=== PATIENT | female | born 1965 | race Caucasian/White ===

== ENCOUNTER → 2016-06-28 10:52 | Outpatient (CLI) | payer BC ==
[2016-02-29 11:44] VITALS: BMI 44.0
[~2016-06-28 10:52] MED LIST: ACETAMINOPHEN500 M1 PO; ADVIL200 MG PO; BLACK COHOSH160 MG PO; DESERYL100 MG PO; DILAUDID2 MG PO; ELIQUIS2.5 MG PO; HYDROCODONE-APA1 TAB PO; MELATONIN10 M1 PO; MOBIC7.5 MG PO; ULTRAM50 MG PO
[2016-06-28 11:21] LABS: HEMATOCRIT 39.7 % (36.0-48.0); HEMOGLOBIN 13.1 g/dL (12-16); MCH 30.5 pg (26.0-34.0); MCV 92.5 fL (80.0-100.0); RBC 4.29 10x6/uL (4.00-5.40); WBC 7.3 10x3/uL (4.8-10.8)
[2016-06-28 11:34] LABS: ALBUMIN 3.5 g/dL (3.4-5.0); ALKALINE PHOSPHATASE 89 U/L (46-116); ALT (SGPT) 27 U/L (10-68); CALC OSMOLALITY 275 mosm/kg (275-300); CALCIUM 8.8 mg/dL (8.5-10.1); CARBON DIOXIDE 27.7 mmol/L (21.0-32.0); CHLORIDE - SERUM 103 mmol/L (98-107); CREATININE - SERUM 0.7 mg/dL (0.6-1.3); GLUCOSE 112 mg/dL (74-106); PROTEIN - SERUM 7.2 g/dL (6.4-8.2); SODIUM 137 mmol/L (136-145); UREA NITROGEN 15 mg/dL (7-18); eGFR NON AFRICAN AMERICAN > 90 mL/min (90-120)
== END | disposition home or self-care (01) ==
LOC: D.LAB 10:52
PROVIDERS: Orthopaedic Surgery
DX: R60.0 Localized edema (principal)

== ENCOUNTER → 2016-07-27 10:20 | Outpatient (CLI) | payer BC ==
[2016-02-29 11:44] VITALS: BMI 44.0
== END | disposition home or self-care (01) ==
LOC: D.MRI 07-25 15:00
DX: M25.561 Pain in right knee (principal)

== ENCOUNTER → 2016-08-03 19:01 | Outpatient (CLI) | payer BC ==
[2016-02-29 11:44] VITALS: BMI 44.0
== END | disposition home or self-care (01) ==
LOC: D.LABREF 19:01
DX: M17.11 Unilateral primary osteoarthritis, right knee (principal); Z11.8 Encounter for screening for other infectious and parasitic diseases

== ENCOUNTER 2016-09-01 09:30 | Inpatient (IN) | payer BC ==
[~2016-09-01] VITALS: Ht 160 cm; Wt 114.5 kg
[~2016-09-01 09:30] MED LIST changes: -ACETAMINOPHEN500 M1 PO; -ELIQUIS2.5 MG PO; -HYDROCODONE-APA1 TAB PO; -MELATONIN10 M1 PO
[2016-09-01 09:32] LABS: BASOPHILS 0.2 % (0.0-2.0); EOSINOPHILS 0.9 % (0-7); HEMATOCRIT 41.9 % (36.0-48.0); HEMOGLOBIN 13.8 g/dL (12-16); IMMATURE GRANULOCYTES 0.2 % (0-5); MCH 31.2 pg (26.0-34.0); MCHC 32.9 g/dL (31.0-37.0); MCV 94.6 fL (80.0-100.0); MONOCYTES 7.6 % (2-11); NEUTROPHILS 49.1 % (40-80); PLATELET COUNT 248 10x3/uL (130-400); RBC 4.43 10x6/uL (4.00-5.40); RDW 12.8 % (11.5-14.5); WBC 6.5 10x3/uL (4.8-10.8)
[2016-09-01 09:39] LABS: APTT 29.6 SECONDS (22.8-39.4); INR 0.94 (0.85-1.17); PROTIME 12.5 SECONDS (11.6-15.0)
[2016-09-01 09:41] LABS: CALC OSMOLALITY 280 mosm/kg (275-300); CALCIUM 8.6 mg/dL (8.5-10.1); CARBON DIOXIDE 26.7 mmol/L (21.0-32.0); CHLORIDE - SERUM 104 mmol/L (98-107); CREATININE - SERUM 0.7 mg/dL (0.6-1.3); GLUCOSE 127 mg/dL (74-106); SODIUM 140 mmol/L (136-145); UREA NITROGEN 12 mg/dL (7-18); eGFR NON AFRICAN AMERICAN > 90 mL/min (90-120)
[2016-09-01] MEDS ORDERED: MELATONIN10 M1 PO (09:48)
[2016-09-01] MEDS ORDERED: ACETAMINOPHEN500 M1 PO (09:49)
[2016-09-01 09:54] LABS: APPEARANCE SLT CLOUDY (CLEAR); BILIRUBIN NEGATIVE (NEGATIVE); COLOR YELLOW (YELLOW); GLUCOSE NEGATIVE (NEGATIVE); KETONE NEGATIVE (NEGATIVE); LEUKOCYTE ESTERASE TRACE (NEGATIVE); NITRITE NEGATIVE (NEGATIVE); PROTEIN NEGATIVE (NEGATIVE); SPECIFIC GRAVITY 1.025 (1.005-1.020); UROBILINOGEN NORMAL (NORMAL)
[2016-09-01 09:55] LABS: BACTERIA MODERATE /hpf (NONE SEEN); MUCUS >1+ /lpf (NONE SEEN); WHITE CELLS - URINE 0-5 /hpf (0-5)
[2016-09-05] VITALS (9 sets, daily range): BP systolic 101–161; BP diastolic 59–89; Ht 160 cm; Wt 114.5 kg
--- NOTE | 2016-09-05 09:34 | NUR ---
PATIENT HAD DROP IN O2 SAT AFTER PAIN MEDICATION GIVEN. NASAL AIR WAY INSERTED WITH ANESTHIA AT BEDSIDE 02 RECOVED TO 97%
--- NOTE | 2016-09-05 09:53 | NUR ---
ANESTHIA HERE FOR FEMORAL BLOCK SEE GREEN SHEET FOR DETAILS
--- NOTE | 2016-09-05 10:10 | NUR ---
PATIENT TO ROOM AT THIS TIME. COMPLAINTS OF SOME PAIN TO RIGHT KNEE. IV INTACT. VS STABLE. FAMILY AT BEDSIDE. CALL LIGHT WITHIN REACH.
--- NOTE | 2016-09-05 10:30 | NUR ---
PATIENT BAKERY DELIVERER DILAUDID SET UP AT THIS TIME FOR PAIN. NEUROVASCULAR CHECKS WNL. NO OTHER COMPLAINTS AT THIS TIME. TOLERATING CLEAR LIQUIDS. WILL ADVANCE TO REGULAR DIET AT LUNCH. PATIENT VS STABLE. FAMILY AT BEDSIDE. CALL LIGHT WITHIN REACH.
--- NOTE | 2016-09-05 12:45 | NUR ---
PATIENT KNEE BLEEDING THROUGH BANDAGE AT THIS TIME. REINFORCED WITH 4X4S AND ABD PADS. IV INTACT. VS STABLE. PATIENT TOLERATED REGULAR DIET. NEUROVASCULAR CHECKS WNL. CALL LIGHT WITHIN REACH. LEFT LEG SCD ON AND WORKING.
--- NOTE | 2016-09-05 15:26 | NUR ---
PATIENT IN BED WITH EYES CLOSED RESTING QUIETLY AT THIS TIME. IV INTACT. CALL LIGHT WITHIN REACH.
--- NOTE | 2016-09-05 17:00 | OP ---
PATIENT NAME: HARIKA CANTU MEDICAL RECORD: [id number] :69 LOCATION:D.MS [id number] ADMISSION DATE:09/05/16 SURGEON: ROSSY MA MD DATE OF OPERATION: 09/05/2016 Orthopedic Surgery Operative Note PREOPERATIVE DIAGNOSIS: Degenerative arthritis of the right knee. POSTOPERATIVE DIAGNOSIS: Degenerative arthritis of the right knee. PROCEDURE: Right total knee arthroplasty. SURGEON: Rossy Ma MD. ANESTHESIA: General. INTRAOPERATIVE COMPLICATIONS: None. SUMMARY OF PATHOLOGIC FINDINGS: The patient had extensive tricompartmental osteoarthritis. IMPLANTS USED: Jose triathlon press fit total knee arthroplasty, size 3 distal femur, 9 polyethylene insert, 3 tibial baseplate, size ____ patellar component. OPERATIVE SUMMARY IN DETAIL: After obtaining the appropriate preoperative orthopedic surgery consent as well as anesthetic consultation, evaluation and clearance, the patient was brought to the operating room and placed on the operating table in supine position. After adequate general laryngeal mask airway was administered, tourniquet was placed about the proximal aspect of the right lower extremity. Right lower extremity was then prepped and draped in routine sterile fashion. Leg was elevated, exsanguinated and tourniquet was inflated to 350 mmHg. Routine midline incision was taken down for paramedian arthrotomy. The patella was subluxed laterally and the distal femur was exposed. Soft tissue excision was done in the usual fashion. Distal intramedullary guide hole was created for distal intramedullary cutting and distal intramedullary cut and was then followed by complete exposure of the proximal tibia. Intramedullary guide hole was completed for the proximal tibia. Proximal tibia was cut using intramedullary guidance. Having completed this, appropriate measurements were made and Chamfer cuts were made on the distal femur. At this point, trial components were put into place. Final distal femoral and proximal tibial preparations were made followed by excision of the arthritic articular surface of the patella. Final patellar components were made and final patellar preparations were made. The cavity was irrigated with pulsatile lavage fashion. Press fit components were put into place. The knee was taken through a range of motion and found to be stable in all planes. Paramedian arthrotomy was closed with #2 Ethibond followed by #1 Vicryl, 2-0 Vicryl and skin adarsh. Sterile dressings were applied. The patient was awakened, taken to recovery in stable condition. All final needle and sponge counts were correct. TRANSINT:[id number] Voice Confirmation ID: [id number] DOCUMENT ID: [id number] OPERATIVE REPORT [id number] HARIKA CANTU MD, ROSSY URRUTIA at 1700 CC: [id number] DICTATION DATE: 09/05/16914 RN GYN: 09/05/16 1316 ADM IN [facility] [address] [id number]
--- NOTE | 2016-09-05 18:50 | NUR ---
PATIENT IN BED WITH IV INTACT. NO COMPLAINTS AT THIS TIME. FAMILY AT BEDSIDE. CALL LIGHT WITHIN REACH.
--- NOTE | 2016-09-05 19:25 | NUR ---
RECIEVED SHIFT REPORT. PT IS LYING IN BED. ALERT AND ORIENTED AND ABLE TO VERBALIZE NEEDS. IV IS PATENT AND FLUIDS ARE RUNNING PER ORDER. SCD'S ON. CPM ON. DRESSING TO RIGHT KNEE C/D/I. O2 @ 2 PER NASAL CANNULA. PT IS ON BEDREST POST OP BUT IS ABLE TO TURN SELF IN BED FOR COMFORT AND SKIN CARE. PT STATES PAIN IS 5/10 WITH QUALIFICATION ENGINEER PUMP. NO NEEDS ARE VERBALIZED AT THIS TIME. WILL CONTINUE TO MONITOR. VISITOR AT BEDSIDE. SIDE RAILS ARE UP X 2. BED IS IN LOWEST POSITION. BED ALARM IS ON FOR SAFETY. CALL LIGHT IS WITHIN REACH.
--- NOTE | 2016-09-05 21:17 | NUR ---
SHIFT ASSESSMENT COMPLETED. NIGHT MEDS GIVEN WITH NO PROBLEMS. NO NEEDS ARE VOICED. WILL MONITOR. VISITOR AT BEDSIDE. SIDE RAILS X 2. BED LOW. BED ALARM ON. CALL LIGHT IN REACH.
[2016-09-06] VITALS: BP 131/73
[2016-09-06 06:03] LABS: HEMATOCRIT 35.6 % (36.0-48.0); HEMOGLOBIN 11.2 g/dL (12-16); MCH 30.2 pg (26.0-34.0); MCHC 31.5 g/dL (31.0-37.0); MEAN PLATELET VOLUME 10.5 fL (7.4-10.4); RBC 3.71 10x6/uL (4.00-5.40); RDW 12.7 % (11.5-14.5); WBC 12.7 10x3/uL (4.8-10.8)
[2016-09-06 08:19] VITALS: BP 136/84
--- NOTE | 2016-09-06 08:50 | NUR ---
PATIENT IV OUT OF VEIN AND HURTING. REMOVED WITH CATH TIP INTACT. PAIN PILL GIVEN. CALL LIGHT WITHIN REACH.
[2016-09-06 12:16] VITALS: BP 114/60
--- NOTE | 2016-09-06 13:00 | NUR ---
PATIENT RECIEVED PAIN MED AND BENADRYL THIS TIME. SITTING UP IN CHAIR WITH CALL LIGHT WITHIN REACH.
--- NOTE | 2016-09-06 13:51 | NUR ---
* Is the patient Alert and Oriented? Yes 0 * How many steps to enter\exit or inside your home? 4 0 * PCP Dr. Bland 0 * Pharmacy [facility] in [place] 0 * Preadmission Environment Home with Family 0 * ADLs Independent 0 * Equipment Rolling Walker 0 * List name and contact numbers for known caregivers / representatives who currently or will assist patient after discharge: Spouse - Suraj [phone] * Additional services required to return to the preadmission environment? Yes 0 * Can the patient safely return to the preadmission environment? Yes 0 * Has this patient been hospitalized within the prior 30 days at any hospital? No 09/06/2016 13:52 DCP: Discharge Planning Patient Name: HARIKA CANTU Admission Status: Elective Accout number: [id number] Admission Date: 09-05-2016 : 1965 Admission Diagnosis: Attending: NATASHA Current LOS: 1 Anticipated DC Date: 09-07-2016 Planned Disposition: Outpatient PT\OT Primary Insurance: [employer] Discharge Planning Comments: CM met with patient to assess dc plans/needs. Patient states she lives at home with her , Suraj. 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 At dc, she will return home with her . She has a rolling walker. A CPM has been ordered by MD office prior to admission through [facility] & will be delivered to the hospital before discharge. Patient has chosen to come to [facility] for outpatient physical therapy - Appt. scheduled 09/09 @ 1045 @ [facility]. Anticipate DC tomorrow afternoon. CM will follow. Call Center Support Consultant: Shantel Dunne
--- NOTE | 2016-09-06 16:00 | NUR ---
PATIENT RECIEVED TYLENOL AT THIS TIME FOR PAIN. STATED SHE IS FEELING FLUSHED. GAVE COOL WASH CLOTH TO PATIENT. TEMP AND BP WNL. NO OTHER COMPLAINTS. CALL LIGHT WITHIN REACH.
[2016-09-06 16:44] VITALS: BP 116/61
--- NOTE | 2016-09-06 17:20 | NUR ---
PATIENT RECIEVED NORCO FOR PAIN THIS TIME. STATED SHE THINKS THE PECOCET IS WHAT IS MAKING HER FEEL FLUSHED. FAMILY AT BEDSIDE. CALL LIGHT WITHIN REACH.
--- NOTE | 2016-09-06 18:45 | NUR ---
PATIENT IN BED WITH CPM ON. STATES FEELING A LITTLE BETTER. FAMILY AT BEDSIDE. CALL LIGHT WITHIN REACH. IMAN IN TO SEE PATIENT.
--- NOTE | 2016-09-06 19:25 | NUR ---
RECIEVED SHIFT REPORT. PT IS LYING IN BED. ALERT AND ORIENTED AND ABLE TO VERBALIZE NEEDS. PT HAS NO IV ACCESS AT THIS TIME. PT IS AMBULATORY WITH ASSISTANCE. SCD'S ON. CPM ON AT THIS TIMW. PT STATES PAIN IS 6/10. NO NEEDS ARE VERBALIZED AT THIS TIME. WILL CONTINUE TO MONITOR. SIDE RAILS ARE UP X 2. BED IS IN LOWEST POSITION. BED ALARM IS ON FOR SAFETY. CALL LIGHT IS WITHIN REACH.
[2016-09-06 20:00] VITALS: BP 131/72
--- NOTE | 2016-09-06 21:35 | NUR ---
SHIFT ASSESSMENT COMPLETED. NIGHT MEDS GIVEN WITH NO PROBLEMS. PT C/O PAIN 11/28. ADMINISTERED PRESCRIBED PRN NORCO PER ORDER. DENIES FURTHER NEEDS. WILL MONITOR. SIDE RAILS X 2. BED LOW. BED ALARM ON. CALL LIGHT IN REACH.
[2016-09-07] VITALS: BP 117/78
[2016-09-07 04:00] VITALS: BP 99/71
[2016-09-07 05:36] LABS: HEMATOCRIT 32.6 % (36.0-48.0); HEMOGLOBIN 10.1 g/dL (12-16); MCH 30.1 pg (26.0-34.0); MEAN PLATELET VOLUME 10.3 fL (7.4-10.4); RBC 3.36 10x6/uL (4.00-5.40); RDW 13.1 % (11.5-14.5); WBC 9.7 10x3/uL (4.8-10.8)
--- NOTE | 2016-09-07 07:00 | NUR ---
REPORT RECIEVED ASSUMED CARE. PATIENT IN BED WITH NO COMPLAINTS. CALL LIGHT WITHIN REACH.
[2016-09-07 08:15] VITALS: BP 138/65
[2016-09-07] MEDS ORDERED: HYDROCODONE-APA1 TAB PO (08:15)
[2016-09-07] MEDS ORDERED: ELIQUIS2.5 MG PO (08:15)
--- NOTE | 2016-09-07 11:25 | NUR ---
09/07/2016 11:24 DCP: Discharge Planning Patient Name: HARIKA CANTU Encounter No: [id number] : 1965 Primary Insurance: [employer] Anticipated DC Date: 09-07-2016 Planned Disposition: Outpatient PT\OT External Planned Provider: [facility] OP PT DCP follow-up note: DC order rec'd. Patient and family in agreement with discharge plan. No changes to plan. CPM will be delivered prior to dc. Case management will follow and assist as needed. Shantel Dunne
--- NOTE | 2016-09-07 13:00 | NUR ---
PATIENT RECIEVED DC INSTRUCTIONS. VERBALIZED UNDERSTANDING. NO QUESTIONS AT THIS TIME. DRESSING TO RIGHT KNEE CHANGED BECAUSE SATURATED. INCISION CLEANED WITH SALINE AND STERILE GAUZE. ROSA INTACT. NO SIGNS OF INFECTION. NEW DRESSING APPLIED. CALL LIGHT WITHIN REACH. PRESCRIPTIONS AND COUPONS FOR ELIQUIS ALSO GIVEN TO PATIENT.
--- NOTE | 2016-09-07 15:18 | NUR ---
Patient requested IV moved from right antecubital. 22 gauge inserted in left hand x 1 attempt. Malini Abebe RN
== END 2016-09-07 15:41 | disposition home or self-care (01) | DRG 470 ==
LOC: D.SDCHOLD 09:30 → D.MS 09-05 09:49
PROVIDERS: ADMIT Orthopaedic Surgery
PROC: 0SRC0JA Replacement of Right Knee Joint with Synthetic Substitute, Uncemented, Open Approach (ICD-10-PCS; principal; 2016-09-05 07:30)
DX: M17.11 Unilateral primary osteoarthritis, right knee (principal); Z87.891 Personal history of nicotine dependence

== ENCOUNTER → 2016-09-12 14:05 | Outpatient (CLI) | payer BC ==
[2016-09-05 10:15] VITALS: BMI 44.7
[~2016-09-12 14:05] MED LIST changes: +ACETAMINOPHEN500 M1 PO; +ELIQUIS2.5 MG PO; +HYDROCODONE-APA1 TAB PO; +MELATONIN10 M1 PO
== END | disposition home or self-care (01) ==
LOC: D.US 14:05
DX: R60.0 Localized edema (principal); M79.661 Pain in right lower leg

== ENCOUNTER 2017-05-04 06:10 | Outpatient (CLI) | payer MEDICAID ==
[~2017-05-04] VITALS: Ht 160 cm; Wt 111.4 kg
[2017-05-04 07:00] LABS: BASOPHILS 0.1 % (0-2); EOSINOPHILS 2.5 % (0-7); HEMATOCRIT 42.3 % (36.0-48.0); HEMOGLOBIN 13.8 g/dL (12-16); IMMATURE GRANULOCYTES 0.1 % (0-5); LYMPHOCYTES 34.5 % (15-50); MCH 30.5 pg (26.0-34.0); MCHC 32.6 g/dL (31.0-37.0); MCV 93.4 fL (80.0-100.0); MEAN PLATELET VOLUME 10.2 fL (7.4-10.4); MONOCYTES 9.1 % (2-11); NEUTROPHILS 53.7 % (40-80); PLATELET COUNT 253 10x3/uL (130-400); RBC 4.53 10x6/uL (4.00-5.40); RDW 13.3 % (11.5-14.5); WBC 7.7 10x3/uL (4.8-10.8)
[2017-05-04] MEDS ORDERED: ALEVE220 MG PO (07:00)
[2017-05-04 07:03] VITALS: Ht 160 cm; Wt 111.4 kg
[2017-05-04 07:12] LABS: CALC OSMOLALITY 279 mosm/kg (275-300); CALCIUM 8.8 mg/dL (8.5-10.1); CARBON DIOXIDE 28.3 mmol/L (21.0-32.0); CHLORIDE - SERUM 105 mmol/L (98-107); CREATININE - SERUM 0.7 mg/dL (0.6-1.3); GLUCOSE 103 mg/dL (74-106); POTASSIUM - SERUM 4.1 mmol/L (3.5-5.1); SODIUM 139 mmol/L (136-145); UREA NITROGEN 18 mg/dL (7-18); eGFR NON AFRICAN AMERICAN > 90 mL/min (90-120)
[2017-05-04 07:19] LABS: HCG SERUM NEGATIVE (NEGATIVE)
== END 2017-05-04 09:50 | disposition home or self-care (01) ==
LOC: D.OPS 06:10 → D.SP 08:00 → D.OPS 09:50
PROVIDERS: General Practice
DX: M25.561 Pain in right knee (principal); Z96.651 Presence of right artificial knee joint; Z01.812 Encounter for preprocedural laboratory examination

== ENCOUNTER → 2018-03-06 09:07 | Outpatient (CLI) | payer MEDICAID ==
[2017-05-04 07:03] VITALS: BMI 43.5
[~2018-03-06 09:07] MED LIST changes: +ALEVE220 MG PO
== END | disposition home or self-care (01) ==
LOC: D.US 09:07
DX: M79.604 Pain in right leg (principal)

== ENCOUNTER → 2018-10-25 10:01 | Outpatient (CLI) | payer MEDICAID ==
[2017-05-04 07:03] VITALS: BMI 43.5
== END | disposition home or self-care (01) ==
LOC: D.NM 10:01
PROVIDERS: ATTEND Clinical Nurse Specialist Family Health
DX: M25.561 Pain in right knee (principal)

== ENCOUNTER → 2019-02-04 16:24 | Outpatient (CLI) | payer MEDICAID ==
[2017-05-04 07:03] VITALS: BMI 43.5
[2019-02-04 16:45] LABS: BASOPHILS 0.2 % (0-2); EOSINOPHILS 1.2 % (0-7); HEMATOCRIT 39.6 % (36.0-48.0); HEMOGLOBIN 13.1 g/dL (12-16); LYMPHOCYTES 38.3 % (15-50); MCH 30.4 pg (26.0-34.0); MCHC 33.1 g/dL (31.0-37.0); MCV 91.9 fL (80.0-100.0); MEAN PLATELET VOLUME 10.2 fL (7.4-10.4); MONOCYTES 5.8 % (2-11); NEUTROPHILS 54.5 % (40-80); PLATELET COUNT 236 10x3/uL (130-400); RBC 4.31 10x6/uL (4.00-5.40); WBC 8.4 10x3/uL (4.8-10.8)
== END | disposition home or self-care (01) ==
LOC: D.LABREF 16:24
PROVIDERS: ATTEND Orthopaedic Surgery
DX: M25.561 Pain in right knee (principal)

== ENCOUNTER 2019-02-08 14:34 | Inpatient (IN) | payer MEDICAID ==
[~2019-02-08] VITALS: Ht 154.9 cm; Wt 120.0 kg
[2019-02-26] MEDS ORDERED: ULTRAM50 MG PO (08:04)
[2019-02-26] MEDS ORDERED: NEURONTIN 300300 MG PO (08:05)
[2019-02-27 11:35] LABS: BASOPHILS 0.2 % (0-2); HEMATOCRIT 42.7 % (36.0-48.0); HEMOGLOBIN 13.7 g/dL (12-16); IMMATURE GRANULOCYTES 0.2 % (0-5); MCH 30.6 pg (26.0-34.0); MCHC 32.1 g/dL (31.0-37.0); MCV 95.3 fL (80.0-100.0); MEAN PLATELET VOLUME 9.9 fL (7.4-10.4); MONOCYTES 7.8 % (2-11); NEUTROPHILS 58.8 % (40-80); PLATELET COUNT 271 10x3/uL (130-400); RBC 4.48 10x6/uL (4.00-5.40); WBC 11.5 10x3/uL (4.8-10.8)
[2019-02-27 11:39] LABS: APPEARANCE CLEAR (CLEAR); BILIRUBIN NEGATIVE (NEGATIVE); COLOR YELLOW (YELLOW); GLUCOSE NEGATIVE (NEGATIVE); KETONE NEGATIVE (NEGATIVE); NITRITE NEGATIVE (NEGATIVE); PROTEIN NEGATIVE (NEGATIVE); SPECIFIC GRAVITY 1.015 (1.005-1.020); UROBILINOGEN NORMAL (NORMAL)
[2019-02-27 11:55] LABS: APTT 30.7 SECONDS (22.8-39.4); CALC OSMOLALITY 278 mosm/kg (275-300); CALCIUM 8.7 mg/dL (8.5-10.1); CARBON DIOXIDE 31.3 mmol/L (21.0-32.0); CHLORIDE - SERUM 103 mmol/L (98-107); CREATININE - SERUM 0.8 mg/dL (0.6-1.3); GLUCOSE 80 mg/dL (74-106); INR 0.94 (0.85-1.17); PROTIME 12.1 SECONDS (11.6-15.0); SODIUM 141 mmol/L (136-145); UREA NITROGEN 10 mg/dL (7-18); eGFR NON AFRICAN AMERICAN 80 mL/min (90-120)
[2019-03-04] VITALS (10 sets, daily range): BP systolic 113–140; BP diastolic 49–92; Ht 154.9 cm; Wt 120.0 kg
[2019-03-04] MEDS ORDERED: TYLENOL ARTHRI650 MG PO (05:44)
[2019-03-05 00:40] VITALS: BP 139/89
[2019-03-05 04:00] VITALS: BP 128/80
[2019-03-05 05:40] LABS: HEMATOCRIT 33.8 % (36.0-48.0); HEMOGLOBIN 10.4 g/dL (12-16); MCHC 30.8 g/dL (31.0-37.0); MCV 97.4 fL (80.0-100.0); RBC 3.47 10x6/uL (4.00-5.40); RDW 13.7 % (11.5-14.5); WBC 8.8 10x3/uL (4.8-10.8)
[2019-03-05 08:29] VITALS: BP 111/64
[2019-03-05 12:38] VITALS: BP 118/73
[2019-03-05 21:27] VITALS: BP 114/55
[2019-03-06 01:14] VITALS: BP 112/60
[2019-03-06 05:15] VITALS: BP 124/67
[2019-03-06 05:29] LABS: HEMATOCRIT 31.9 % (36.0-48.0); HEMOGLOBIN 9.9 g/dL (12-16); MCH 30.2 pg (26.0-34.0); MCV 97.3 fL (80.0-100.0); MEAN PLATELET VOLUME 9.9 fL (7.4-10.4); RBC 3.28 10x6/uL (4.00-5.40); RDW 13.6 % (11.5-14.5); WBC 10.4 10x3/uL (4.8-10.8)
[2019-03-06 09:04] VITALS: BP 107/54
[2019-03-06 12:46] VITALS: BP 150/90
--- NOTE | 2019-03-06 15:30 | MORECARE ---
CASE MANAGEMENT DISCHARGE SUMMARY PATIENT: HARIKA CANTU UNIT: [id number] ADM DATE: 03/04/19 AGE: 54 : 69 SEX: F ROOM/BED: D.2210 AUTHOR: MORALES MERRILL PHYSICIAN: REFERRING PHYSICIAN: ROSSY MA MD DATE OF SERVICE: 03/06/19 Discharge Plan Patient Name: HARIKA CANTU [facility] [facility] 1965 Planned Disposition: Home Anticipated Discharge Date: Discharge Date: Expected LOS: Initial Reviewer: [email or web address] Initial Review Date: 03/04/2019 Generated: 03/06/19 4:30 pm DCPIA - Discharge Planning Initial Assessment Updated by [email or web address]: Samia Rankin on 03/06/19 3:28 pm * Is the patient Alert and Oriented? Yes * How many steps to enter\exit or inside your home? * PCP GAYATHRI CLAY * Pharmacy [facility] IN [place] * Preadmission Environment Home with Family * ADLs Independent * Equipment Bedside Commode Rolling Walker * List name and contact numbers for known caregivers / representatives who currently or will assist patient after discharge: POLLY CANTU [phone] * Verbal permission to speak to the caregivers and representatives has been obtained from the patient. N/A * Community resources currently utilized None * Additional services required to return to the preadmission environment? No * Can the patient safely return to the preadmission environment? Yes * Has this patient been hospitalized within the prior 30 days at any hospital? No Patient Name: HARIKA CANTU Page [id number] at 1530 All edits/amendments must be made on the electronic document DICTATION DATE: 03/06/19 1530 ELECTRICAL ENGINEERING TECHNOLOGIST: BHAKTI 03/06/19 1530 RPT#: [id number] DC DATE: STATUS: ADM IN [facility] [address] [place] [address] END OF REPORT
--- NOTE | 2019-03-06 15:41 | MORECARE ---
CASE MANAGEMENT DISCHARGE SUMMARY PATIENT: HARIKA CANTU UNIT: [id number] ADM DATE: 03/04/19 AGE: 54 : 69 SEX: F ROOM/BED: D.2210 AUTHOR: DESIRAE,DOC PHYSICIAN: REFERRING PHYSICIAN: ROSSY MA MD DATE OF SERVICE: 03/06/19 Discharge Plan Patient Name: HARIKA CANTU Facility: [facility]:[place] : 1965 Planned Disposition: Home Anticipated Discharge Date: Discharge Date: Expected LOS: Initial Reviewer: [email or web address] Initial Review Date: 03/04/2019 Generated: 03/06/19 4:41 pm Comments DCP- Discharge Planning Updated by [email or web address]: Samia Rankin on 03/06/19 2:[address] Patient Name: HARIKA CANTU Admission Status: Elective Accout number: [id number] Admission Date: 03-04-2019 : 1965 Admission Diagnosis: Attending: ROSSY MA Current LOS: 2 Anticipated DC Date: Planned Disposition: Home [place] Insurance: [place] [employer] [place] Discharge Planning Comments: CM met with patient to complete initial dc planning assessment. CM educated patient on the CM role and verbal consent given by patient to complete assessment. Patient lives at home with her where she is independent with her care. Her will be her catering truck driver home when she is discharged. At discharge patient plans to return home and feels this is a safe discharge. CM discussed availability of home health, rehab services, and medical equipment. She has a walker and a BSC at home. She plans to do her OP PT at [facility] in [place]. CM will set that up prior to discharge. Patient denied known discharge needs at this time. CM will continue to follow and will assist as needed with dc plans/needs. Slot Technician: Samia Rankin DCPIA - Discharge Planning Initial Assessment Updated by [email or web address]: Samia Rankin on 03/06/19 3:28 pm * Is the patient Alert and Oriented? Yes * How many steps to enter\exit or inside your home? * PCP GAYATHRI CLAY * Pharmacy [facility] IN [place] * Preadmission Environment Home with Family * ADLs Independent * Equipment Bedside Commode Rolling Walker * List name and contact numbers for known caregivers / representatives who currently or will assist patient after discharge: POLLY CANTU [phone] * Verbal permission to speak to the caregivers and representatives has been obtained from the patient. N/A * Community resources currently utilized None * Additional services required to return to the preadmission environment? No * Can the patient safely return to the preadmission environment? Yes * Has this patient been hospitalized within the prior 30 days at any hospital? No Last DP export: 03/06/19 2:30 Patient Name: HARIKA CANTU Page [id number] at 1541 All edits/amendments must be made on the electronic document DICTATION DATE: 03/06/191540 AUTOMATIC NAILING MACHINE OPERATOR: BHAKTI 03/06/191540 RPT#: [id number] DC DATE: STATUS: ADM IN [facility] [address] [place] [address] END OF REPORT
[2019-03-06 16:38] VITALS: BP 123/71
[2019-03-06 20:00] VITALS: BP 132/75
[2019-03-07 04:00] VITALS: BP 123/72
[2019-03-07] MEDS ORDERED: ZOFRAN4 MG PO (08:24)
[2019-03-07] MEDS ORDERED: PERCOCET 10-321 EAC1 PO (08:24)
[2019-03-07] MEDS ORDERED: ELIQUIS2.5 MG PO (08:24)
[2019-03-07 09:48] VITALS: BP 119/67
--- NOTE | 2019-03-07 11:08 | MORECARE ---
CASE MANAGEMENT DISCHARGE SUMMARY PATIENT: HARIKA CANTU UNIT: [id number] ADM DATE: 03/04/19 AGE: 54 : 69 SEX: F ROOM/BED: D.2210 AUTHOR: DESIRAE,DOC PHYSICIAN: REFERRING PHYSICIAN: ROSSY MA MD DATE OF SERVICE: 03/07/19 Discharge Plan Patient Name: HARIKA CANTU Facility: [facility]:[place] : 1965 Planned Disposition: Home Anticipated Discharge Date: Discharge Date: Expected LOS: Initial Reviewer: [email or web address] Initial Review Date: 03/04/2019 Generated: 03/07/19 12:08 pm Comments DCP- Discharge Planning Updated by [email or web address]: Samia Rankin on 03/07/19 10:[address] Patient to be discharged home today. OP PT at [facility] has been set up for 03/12 @10:00 I spoke with Arabella and faxed order over DCP- Discharge Planning Updated by [email or web address]: Samia Rankin on 03/06/19 2:[address] Patient Name: HARIKA CANTU Admission Status: Elective Accout number: [id number] Admission Date: 03-04-2019 : 1965 Admission Diagnosis: Attending: ROSSY MA Current LOS: 2 Anticipated DC Date: Planned Disposition: Home [place] Insurance[place] [employer] [place] Discharge Planning Comments: CM met with patient to complete initial dc planning assessment. CM educated patient on the CM role and verbal consent given by patient to complete assessment. Patient lives at home with her where she is independent with her care. Her will be her driver merchandiser home when she is discharged. At discharge patient plans to return home and feels this is a safe discharge. CM discussed availability of home health, rehab services, and medical equipment. She has a walker and a BSC at home. She plans to do her OP PT at [facility] in [place]. CM will set that up prior to discharge. Patient denied known discharge needs at this time. CM will continue to follow and will assist as needed with dc plans/needs. Kitchen Food Server: Samia Rankin DCPIA - Discharge Planning Initial Assessment Updated by [email or web address]: Samia Rankin on 03/06/19 3:28 pm * Is the patient Alert and Oriented? Yes * How many steps to enter\exit or inside your home? * PCP GAYATHRI CLAY * Pharmacy [facility] IN [place] * Preadmission Environment Home with Family * ADLs Independent * Equipment Bedside Commode Rolling Walker * List name and contact numbers for known caregivers / representatives who currently or will assist patient after discharge: POLLY CANTU [phone] * Verbal permission to speak to the caregivers and representatives has been obtained from the patient. N/A * Community resources currently utilized None * Additional services required to return to the preadmission environment? No * Can the patient safely return to the preadmission environment? Yes * Has this patient been hospitalized within the prior 30 days at any hospital? No Last DP export: 03/06/19 2:41 Patient Name: HARIKA CANTU Page [id number] at 1108 All edits/amendments must be made on the electronic document DICTATION DATE: 03/07/191107 ACIDITY TESTER: BHAKTI 03/07/191107 RPT#: [id number] DC DATE: STATUS: ADM IN [facility] [address] [place] [address] END OF REPORT
--- NOTE | 2019-03-08 14:29 | OP ---
PATIENT NAME: YULI NIELSEN MEDICAL RECORD: [id number] :69 LOCATION:D.MS Carbone2210 ADMISSION DATE:03/04/19 SURGEON: ROSSY MA MD DATE OF OPERATION: 03/04/2019 PREOPERATIVE DIAGNOSES: 1. Right knee pain status post total knee arthroplasty. 2. Metal allergy. POSTOPERATIVE DIAGNOSES: 1. Right knee pain status post total knee arthroplasty. 2. Metal allergy. PROCEDURE: Revision right total knee arthroplasty. SURGEON: Rossy Ma MD ACCOUNT UNDERWRITER: Marcos Olea APN INTRAOPERATIVE COMPLICATIONS: Essentially none. SUMMARY OF PATHOLOGIC FINDINGS: The patient had substantial amount of synovitis with appeared to be inflammatory reaction. The press-fit [place] Triathlon knee that was placed was well fixed and was not loose in any fashion and was removed with very little bone loss. INDICATIONS: Ms. Yuli Nielsen had a total knee arthroplasty done approximately 24 months ago. In the postoperative period, she continued to have pain despite normal radiographic appearances, despite normal physical therapy, and despite normal range of motion. Inflammatory markers were essentially normal; however, she was sent by us for metal allergy testing. SHE WAS INDEED ALLERGIC TO CHROMIUM, COBALT, MANGANESE, AND NICKEL. Ironically, her sister had a similar problem that was unknown until each had their knee replaced. Revision system utilized Aesculap total knee arthroplasty, which is devoid of nickel, cobalt chrome, and any magnesium or manganese. The speciality system was brought in just for this purpose. Size of implants used were T1 tibial baseplate, a 4 femur with corresponding press-fit post in the femur as well as the tibia. Please see chart for final details. The polyethylene insert was a medium stabilization. On this younger patient, I did not feel like maximal stabilization was going to provide her the best long-term results. OPERATIVE SUMMARY IN DETAIL: After obtaining the appropriate preoperative orthopedic surgery consent, as well as anesthetic consultation, evaluation and clearance, the patient was brought to the operating room and placed on the operating table in supine position. After adequate general laryngeal mask airway was administered, tourniquet was placed on the proximal aspect of the right lower extremity. Right lower extremity was then prepped and draped in routine sterile fashion. The leg was elevated and exsanguinated, tourniquet was inflated to 350 mmHg. Midline incision was taken down to the previous incision taken down for paramedian arthrotomy. Paramedian arthrotomy was placed in a similar line as prior. At this point, the patella was examined and was thought to be in a good overall condition. The metal-backed patella was made with titanium only without any cobalt chrome. Therefore, decision was made to keep the metal-backed patella in place as she did not test positive for pure OPERATIVE REPORT [id number] YULI NIELSEN titanium, which is the backside of the Jose triathlon press-fit patella. Distal femur was exposed. Polyethylene was removed and then with a very large degree of crepitation, the press-fit distal femur was removed without bone loss. It had, however, grown in very nicely and when it was removed, again very little bone was lost. Next, the tibia was removed. A safety cut saw was utilized to cut through the 3D printed trabecular metal on the backside of the titanium implant. This was then removed in its entirety with minimal degree of bone loss. Attention was first turned to the tibia. Hand reaming was done in keeping with the Lavish Skatelap system. It was hand reamed to the appropriate size post and then the trial was put into place after final proximal tibial preparations. The trial was then screwed into place and left while attention was turned to the femur. Again, serial and sequential hand reaming was done of the proximal femur to the appropriate size. The ring was left in place and distal femoral cuts were made. The lateral side required a 5-mm augmentation. However, no other augmentations were needed. The trial was then put into place and multiple polyethylenes were utilized and it was felt that the size 12 was the most appropriate. At this point, all trials were taken out. The knee cavity was thoroughly irrigated with a pulsatile lavage career portals teacher while the final components were assembled on the back table. The offsets were 0 x 0 and the augment was placed on the lateral aspect of the femur. After the components were built, the knee ends were dried. Cement was mixed and the final components were cemented into place. All excess cement was removed. The polyethylene was likewise put into place with the set screw anteriorly. After all cement was allowed to harden, the knee was taken through a range of motion and indeed with the range of motion, the patient had excellent congruency of the distal femur as well as good patellar tracking. A gram of vancomycin and a gram of tobramycin were then placed in the knee in powder form. Paramedian arthrotomy was closed with #2 Ethibond by Marcos Olea APN. Final skin closure achieved with #1 Vicryl, 2-0 Vicryl, and skin adarsh. Sterile dressings were applied. Tourniquet was deflated. The patient was awakened and taken to recovery room in stable condition. All final needle and sponge counts were correct. TRANSINT:[id number] Voice Confirmation ID: [id number] DOCUMENT ID: [id number] FRANCESCA BARRETT, ROSSY URRUTIA at 1429 CC: [id number] DICTATION DATE: 03/08/19 1030 ODD SHOE EXAMINER: 03/08/19 1146 DIS IN 03/07/19 [facility] [address] [place] [address]
--- NOTE | 2019-03-11 14:49 | MORECARE ---
CASE MANAGEMENT DISCHARGE SUMMARY PATIENT: HARIKA CANTU UNIT: [id number] ADM DATE: 03/04/19 AGE: 54 : 69 SEX: F ROOM/BED: D.2210 AUTHOR: DESIRAE,DOC PHYSICIAN: REFERRING PHYSICIAN: ROSSY MA MD DATE OF SERVICE: 03/11/19 Discharge Plan Patient Name: HARIKA CANTU Facility: [facility]:Advance : 1965 Planned Disposition: Home Anticipated Discharge Date: Discharge Date: 03/07/2019 Expected LOS: Initial Reviewer: [email or web address] Initial Review Date: 03/04/2019 Generated: 03/11/19 3:48 pm Comments DCP- Discharge Planning Updated by [email or web address]: Samia Rankin on 03/07/19 10:[address] Patient to be discharged home today. OP PT at [facility] has been set up for 03/12 @10:00 I spoke with Arabella and faxed order over DCP- Discharge Planning Updated by [email or web address]: Samia Rankin on 03/06/19 2:[address] Patient Name: HARIKA CANTU Admission Status: Elective Accout number: [id number] Admission Date: 03-04-2019 : 1965 Admission Diagnosis: Attending: ROSSY MA Current LOS: 2 Anticipated DC Date: Planned Disposition: Home [place]: [place] [employer] [place] Discharge Planning Comments: CM met with patient to complete initial dc planning assessment. CM educated patient on the CM role and verbal consent given by patient to complete assessment. Patient lives at home with her where she is independent with her care. Her will be her feedmobile driver home when she is discharged. At discharge patient plans to return home and feels this is a safe discharge. CM discussed availability of home health, rehab services, and medical equipment. She has a walker and a BSC at home. She plans to do her OP PT at [facility] in [place]. CM will set that up prior to discharge. Patient denied known discharge needs at this time. CM will continue to follow and will assist as needed with dc plans/needs. Validation Engineer: Samia Rankin DCPIA - Discharge Planning Initial Assessment Updated by [email or web address]: Samia Rankin on 03/06/19 3:28 pm * Is the patient Alert and Oriented? Yes * How many steps to enter\exit or inside your home? * PCP GAYATHRI CLAY * Pharmacy [facility] [place] * Preadmission Environment Home with Family * ADLs Independent * Equipment Bedside Commode Rolling Walker * List name and contact numbers for known caregivers / representatives who currently or will assist patient after discharge: POLLY CANTU [phone] * Verbal permission to speak to the caregivers and representatives has been obtained from the patient. N/A * Community resources currently utilized None * Additional services required to return to the preadmission environment? No * Can the patient safely return to the preadmission environment? Yes * Has this patient been hospitalized within the prior 30 days at any hospital? No Last DP export: 03/07/19 10:08 Patient Name: HARIKA CANTU Page [id number] at 1449 All edits/amendments must be made on the electronic document DICTATION DATE: 03/11/191447 FIRE CONTROL ASSISTANT: BHAKTI 03/11/191447 RPT#: [id number] DC DATE:03/07/19 STATUS: DIS IN [facility] [address] [place] [address] END OF REPORT
[2019-04-24] MEDS ORDERED: ULTRAM50 MG PO (08:46)
[2019-04-24] MEDS ORDERED: SMZ-TMP DS 800-1 TAB PO (08:48)
[2019-04-24] MEDS ORDERED: IBUPROFEN600 MG PO (08:48)
== END 2019-03-07 13:16 | disposition home or self-care (01) | DRG 468 ==
LOC: D.SDCHOLD 02-25 10:00 → D.MS 03-04 05:05 → D.SDCHOLD 03-04 07:30 → D.MS 03-04 12:14
PROVIDERS: ADMIT Orthopaedic Surgery; ATTEND Orthopaedic Surgery
PROC: 0SRC0J9 Replacement of Right Knee Joint with Synthetic Substitute, Cemented, Open Approach (ICD-10-PCS; 2019-03-04)
PROC: 0SPC0JZ Removal of Synthetic Substitute from Right Knee Joint, Open Approach (ICD-10-PCS; principal; 2019-03-04 07:30)
DX: T84.84XA Pain due to internal orthopedic prosthetic devices, implants and grafts, initial encounter (principal); Y83.9 Surgical procedure, unspecified as the cause of abnormal reaction of the patient, or of later complication, without mention of misadventure at the time of the procedure; T78.49XA Other allergy, initial encounter; X58.XXXA Exposure to other specified factors, initial encounter; Z87.891 Personal history of nicotine dependence

== ENCOUNTER → 2019-04-04 18:11 | Outpatient (CLI) | payer MEDICAID ==
[2019-03-04 12:58] VITALS: BMI 50.0
[~2019-04-04 18:11] MED LIST changes: +IBUPROFEN600 MG PO; +NEURONTIN 300300 MG PO; +PERCOCET 10-321 EAC1 PO; +SMZ-TMP DS 800-1 TAB PO; +TYLENOL ARTHRI650 MG PO; +ZOFRAN4 MG PO
== END | disposition home or self-care (01) ==
LOC: D.LABREF 18:11
PROVIDERS: ATTEND Clinical Nurse Specialist Family Health
DX: M25.561 Pain in right knee (principal)

== ENCOUNTER 2019-04-25 14:18 | Day surgery (SDC) | payer MEDICAID ==
[~2019-04-25] VITALS: Ht 160 cm; Wt 114.8 kg
[2019-04-25 11:41] VITALS: BP 134/85; Ht 160 cm; Wt 114.8 kg
[2019-04-25 12:34] LABS: HEMATOCRIT 42.9 % (36.0-48.0); HEMOGLOBIN 13.6 g/dL (12-16); MCH 30.1 pg (26.0-34.0); MCHC 31.7 g/dL (31.0-37.0); MCV 94.9 fL (80.0-100.0); MEAN PLATELET VOLUME 10.2 fL (7.4-10.4); RBC 4.52 10x6/uL (4.00-5.40); RDW 13.7 % (11.5-14.5); WBC 6.8 10x3/uL (4.8-10.8)
--- NOTE | 2019-04-30 13:07 | OP ---
PATIENT NAME: HARIKA CANTU MEDICAL RECORD: [id number] :69 LOCATION:D.OPS ADMISSION DATE: SURGEON: ROSSY MA MD DATE OF OPERATION: 04/25/2019 PREOPERATIVE DIAGNOSIS: Foreign body -- stitch abscess, right lower extremity. POSTOPERATIVE DIAGNOSIS: Foreign body -- stitch abscess, right lower extremity. PROCEDURE: Removal of stitch abscess. SURGEON: Rossy Ma MD ANESTHESIA: General. INTRAOPERATIVE COMPLICATIONS: None. SUMMARY OF PATHOLOGIC FINDINGS: The patient did have a stitch abscess that was the #1 Vicryl that did have areas of abscess around it. This was excised in its entirety and this excision included the foreign body. OPERATIVE SUMMARY IN DETAIL: After obtaining the appropriate preoperative orthopedic surgery consent as well as anesthetic consultation, evaluation and clearance, the patient was brought to the operating room and placed on the operating table in supine position. After general laryngeal mask airway was administered, the patient's right lower extremity was prepped and draped in routine sterile fashion. Elliptical incision was made about the area of concern. This was taken down approximately 1 cm deep and the entire abscess was taken out. A combination of rongeur and curette was used to be sure that all nonviable-appearing tissue was taken down after copious irrigation. Mattress style suture was utilized with 3-0 Prolene to reapproximate the skin. The area was locally infiltrated with 0.25% Marcaine plain. Sterile dressings were applied. The patient was awakened, taken to recovery room in stable condition. All final needle and sponge counts were correct. TRANSINT:[id number] Voice Confirmation ID: [id number] DOCUMENT ID: [id number] ROSSY MA MD at 1307 CC: [id number] DICTATION DATE: 04/30/19 0929 THERAPY TECHNICIAN: 04/30/19 1037 [facility] 04/25/[address] [address]
== END 2019-04-25 15:00 | disposition home or self-care (01) ==
LOC: D.OPS 14:18
PROVIDERS: Anesthesiology; ATTEND Orthopaedic Surgery
DX: L02.415 Cutaneous abscess of right lower limb (principal); T81.41XA Infection following a procedure, superficial incisional surgical site, initial encounter; M25.561 Pain in right knee